=== PATIENT | female | born 1965 | race Caucasian/White ===

== ENCOUNTER 2017-03-05 10:45 | Day surgery (SDC) | payer OTHER ==
--- NOTE | 2017-02-09 07:31 | PCM.HPANE ---
Patient Data Surgeon Admitting Provider: Attending Provider:Flex Garcia MD Primary Care Physician:Kate Magallon Other Provider:Lety Echevarriaingham Anesthesia Reason for Visit Constipation, Right Upper Quadrant Pain Ht/WT & BMI Body Mass Index Allergies Coded Allergies: Sulfa (Sulfonamide Antibiotics) (Verified Allergy, Intermediate, MIGRAINES , 02/08/17) codeine (Verified Allergy, Intermediate, MIGRAINES, 02/08/17) Medications Reported Medications Ergocalciferol (Vitamin D2) (Vitamin D2)2,000 Unit Bgqewj68,000 Unit PO WEEKLY 02/08/17 Venlafaxine 37.5 Mg Vsgnbs38.5 Mg PO BIDWM Ref 0 02/08/17 Omeprazole 20 Mg Capsule.dr20 Mg PO DAILY Ref 0 02/08/17 Nitroglycerin SL 0.4 Mg Tab.subl0.4 Mg SL 02/08/17 Polyethylene Glycol 3350 (Miralax)17 Gm Powd.pack17 Gm PO 02/08/17 Metoprolol Tartrate 25 Mg Raazcm79 Mg PO BID 30 Days Ref 0 02/08/17 Psyllium Husk/Aspartame (Metamucil Sugar-Free Powder)3.4 Gram/5.8 Gram Htsspw051 Gm PO 02/08/17 Lorazepam 0.5 Mg Tablet0.5 Mg PO BID PRN For Insomnia Ref 0 02/08/17 Dicyclomine (Bentyl)10 Mg Lvkmtlo70 Mg PO QID 02/08/17 Aspirin 325 Mg Leezpz812 Mg PO DAILY #1 BOTTLE 02/08/17 Simvastatin 20 Mg Kxenmi15 Mg PO HS Ref 0 02/08/17 Stop/Bang Risk Assessment Category Category 1A: Patient has history of documented sleep apnea, and HAS NOT received any narcotic, sedative or anesthesia administration during this stay. Category 1B: Patient has history of documented sleep apnea, and HAS received any narcotic , sedative or anesthesia administration during this stay Category 2: Patient has SUSPECTED Obstructive Sleep Apnea, and HAS received any narcotic , sedative or anesthesia administration during this stay. Category 3: Patient has SUSPECTED Obstructive Sleep Apnea and HAS NOT received narcotic, sedative or anesthesia administration during this stay. Category 4: Outpatient in Procedural Areas with known sleep apnea or who screen positive for High Risk via the STOP/BANG questionnaire. Plan Impression Patient chart reviewed, patient interviewed and anesthestic plan with risks, benefits, and alternatives discussed, and informed consent obtained. Siva Jaramillo MD Feb 09, 2017 07:31
[~2017-03-05] VITALS: Ht 170.2 cm; Wt 109.0 kg
[~2017-03-05 10:45] MED LIST: ASPI325T32 PO; DICY10CA56 PO; ERGO2000 PO; LORA0.5T PO; METO25TA6 PO; NITR0.4T6 SL; OMEP20CA11 PO; POLY17PO6 PO; SIMV20TA4 PO; VENL37.57 PO; [UNRECOGNIZED DRUG - CODE] PO
[2017-03-05 11:15] VITALS: BP 118/68; PULSE 65; RESP 18; O2SAT 93
[2017-03-05] MEDS ORDERED: RANI150C4 PO ×2 (11:18)
[2017-03-05] MEDS: Lactated Ringer's 1,000 ML IV ONE ×2 (11:34→12:43)
[2017-03-05] MEDS ORDERED: Lactated Ringer's 1,000 ML IV SCH (12:29)
[2017-03-05] MEDS ORDERED: Lactated Ringer's 1,000 ML IV ONE (12:29)
--- NOTE | 2017-03-05 12:29 | PCM.HPANE ---
Patient Data Surgeon Admitting Provider: Attending Provider:Flex Garcia MD Primary Care Physician:Yaw Brenner/Garett Other Provider:Amaury Echevarria Anesthesia Reason for Visit Constipation, Right Upper Quadrant Pain Ht/WT & BMI Height (Feet): 5 Height (Inches): 7 Weight (Kilograms): 109 Body Mass Index 37.00 Allergies Coded Allergies: Sulfa (Sulfonamide Antibiotics) (Verified Allergy, Intermediate, MIGRAINES , 03/05/17) codeine (Verified Allergy, Intermediate, MIGRAINES, 03/05/17) Past Anesthesia History Anesthesia History: Denies:: Abnormal Airway, Anesthesia Reactions, Difficult Intubation, Fam Anesthesia Reaction, Fam Malignant Hypertherm, Malignant Hyperthermia Diabetes History Hx Diabetes?: No MRSA MRSA: No Medications Home Meds Incl Beta Gómez: No Reported Medications Ranitidine 150 Mg Dykeslb813 Mg PO BID Ref 0 03/05/17 Ranitidine 150 Mg Mwlokde270 Mg PO DAILY Ref 0 03/05/17 Venlafaxine 37.5 Mg Nrzurb86.5 Mg PO BIDWM Ref 0 02/08/17 Nitroglycerin SL 0.4 Mg Tab.subl0.4 Mg SL 02/08/17 Polyethylene Glycol 3350 (Miralax)17 Gm Powd.pack17 Gm PO 02/08/17 Metoprolol Tartrate 25 Mg Fqpeiu98 Mg PO BID 30 Days Ref 0 02/08/17 Dicyclomine (Bentyl)10 Mg Deprbpg19 Mg PO QID 02/08/17 Simvastatin 20 Mg Evdazk09 Mg PO HS Ref 0 02/08/17 Discontinued Reported Medications Ergocalciferol (Vitamin D2) (Vitamin D2)2,000 Unit Akhidh08,000 Unit PO WEEKLY 02/08/17 Omeprazole 20 Mg Capsule.dr20 Mg PO DAILY Ref 0 02/08/17 Psyllium Husk/Aspartame (Metamucil Sugar-Free Powder)3.4 Gram/5.8 Gram Qgldke515 Gm PO 02/08/17 Lorazepam 0.5 Mg Tablet0.5 Mg PO BID PRN For Insomnia Ref 0 02/08/17 Aspirin 325 Mg Nxfppn453 Mg PO DAILY #1 BOTTLE 02/08/17 History History of ENT Problems?: No HEENT History: Denies:: Abnormal Airway Difficult Intubation Dysphagia Hearing Problem Denture Type: None Teeth Condition: Within Normal Limits Hx of Heart Problems?: Yes Cardiovascular History: Denies:: AICD Hypertension Pacemaker Valvular Heart Disease Other Cardiac History: HISTORY OF PALPITATIONS, NOW RESOLVED Hx of Respiratory Problem?: No Respiratory History: Denies:: Asthma COPD Chest Surgery Cough Dyspnea Emphysema Hemoptysis Oxygen Administration Pneumonia Pulmonary Embolism Tuberculosis Use of C-PAP Machine Use of Inhalers / NEBS Hx Neurologic Problems?: No Neurological History: Denies:: CVA Hx of GI Problems?: Yes Hx of Problems?: No HX of Peritoneal Dialysis: No Female Hx: Denies:: Currently (POST MENOPAUSE) Hx Musculoskeletal Problems?: Yes Musculoskeletal History: Positive for:: Joint Replacement (KNEE) Denies:: Fibromyalgia Hx of Psycho/Social Problems?: Yes Psycho Social History: Positive for:: Anxiety Denies:: Hx Depression Hx Surgeries?: Yes (GALLBLADDER, HYSTERECTOMY, KNEE, KNEE REPLACEMENT, RT SHOULDER) Hx Any Other Health Problems?: Yes Hx Diabetes: No Hx Alcohol Use: No Stop/Bang Treated for Sleep Apnea?: No Do You Have a CPAP Machine?: No S-Snoring: Do You Snore Loudly: Yes T-Tired: feel tired, fatigued: No O-Obsered: Observed not breath: No P-Blood Pressure: treated: No B- Body Mass Index > 35 kg/m2: Yes A- Age over 50: Yes N- Neck Large Circumference: No G- Gender Male: No HUSSEIN Total Score: 3 HUSSEIN Risk Assessment: Low Risk, <3 Yes HUSSEIN Category 2: Yes Risk Assessment Category Category 1A: Patient has history of documented sleep apnea, and HAS NOT received any narcotic, sedative or anesthesia administration during this stay. Category 1B: Patient has history of documented sleep apnea, and HAS received any narcotic , sedative or anesthesia administration during this stay Category 2: Patient has SUSPECTED Obstructive Sleep Apnea, and HAS received any narcotic , sedative or anesthesia administration during this stay. Category 3: Patient has SUSPECTED Obstructive Sleep Apnea and HAS NOT received narcotic, sedative or anesthesia administration during this stay. Category 4: Outpatient in Procedural Areas with known sleep apnea or who screen positive for High Risk via the STOP/BANG questionnaire. Exam Exam Vital Signs Vital Signs Date Time Temp Pulse Resp B/P Pulse Ox O2 Delivery O2 Flow Rate FiO2 03/05/17 11:15 37 65 18 118/68 93 Room Air General Appearance: Oriented X3 HEENT/AIRWAY: MP 2 Lungs: Normal Air Movement Heart: Regular Rate/Rhythm Plan Impression Patient chart reviewed, patient interviewed and anesthestic plan with risks, benefits, and alternatives discussed, and informed consent obtained. ASA Physical Status: ASA2 Mod Systemic Disease Anesthetic Plan: MAC Bene/Risks/Altern/Consents: Yes HP Complete Prior to Induction: Yes Ricky Brantley MD Mar 05, 2017 12:29
[2017-03-05] MEDS ORDERED: Ondansetron 2 mg/mL 2 mL Inj IVPUSH PRN (12:30)
[2017-03-05] MEDS ORDERED: MetoCLOpramide 5 mg/mL 2 mL Inj IVPUSH PRN (12:30)
[2017-03-05 13:00] VITALS: BP 99/67; PULSE 77; RESP 12; O2SAT 92
[2017-03-05 13:10] VITALS: BP 101/56; PULSE 84; RESP 14; O2SAT 95
[2017-03-05 13:20] VITALS: BP 112/76; PULSE 79; RESP 14; O2SAT 99
--- NOTE | 2017-03-05 14:24 | ENDO ---
[address] [address] ENDOSCOPY PROCEDURE PATIENT: PRINCE NEWMAN : 1965 MR#: [id number] ADMIT: 03/05/2017 JOB ID: [id number] DATE: 03/05/2017 TYPE OF OPERATION: 1. Esophagogastroduodenoscopy with biopsy. 2. Colonoscopy. PREOPERATIVE DIAGNOSIS(ES): Constipation, abdominal pain. POSTOPERATIVE DIAGNOSIS(ES): 1. Mild nonerosive gastritis. 2. Poor prep. ANESTHESIA: Monitored anesthesia care. COMPLICATIONS: None. BLOOD LOSS: Minimal. DESCRIPTION OF PROCEDURE: After risks and benefits were explained to the patient, informed consent was obtained. After anesthesia administered, upper endoscope was then inserted into the mouth intubating through the esophagus, stomach, second portion of duodenum. Mucosa carefully examined. After the procedure was done, the scope was withdrawn and the procedure terminated. Colonoscope was then inserted from the rectum to the cecum. Mucosa carefully examined. Prep of the patient was poor. After procedure was done, the scope was withdrawn and procedure terminated. FINDINGS: Upon inspection of the esophagus, the esophagus was normal without masses, ulcers or lesions. Z-line located 40 cm from incisors. Upon entering the stomach, there was mild nonerosive gastritis that was seen. No masses, ulcers, lesions were recognized. Retroflexion was normal. Duodenal bulb, first and second portion were normal. Biopsies taken at duodenum, antrum, body of stomach and distal esophagus. Upon inspection of the anus, no masses, hemorrhoids, ulcers or fissures that were seen. Throughout the entire examination, there was liquid stool that was seen in various parts of the colon. No obvious masses or polyps were seen. Retroflexion was normal. IMPRESSIONS: 1. Poor prep with liquid stool seen throughout the entire colon, but still be able to visualize various portions of the colon. 2. Mild nonerosive gastritis. RECOMMENDATIONS: 1. Await pathology results. 2. Would recommend repeat colonoscopy with two day prep in one to three years given the poor prep. [facility]
--- NOTE | 2017-03-09 11:00 | PATH ---
SURGICAL PATHOLOGY Attending Physician:Flex Garcia MD CASE STATUS: Signed Out PATIENT NAME: PRINCE NEWMAN PID: [id number] : 1965 DATE COLLECTED:03/05/2017 21:33 SPECIMEN: 1: Duodenum, Biopsy 2: Stomach, Antrum, Biopsy 3: Gastric, Biopsy 4: Esophagus, Biopsy CLINICAL HISTORY: CONSTIPATION/ABD.PAIN 1). DUODENUM BIOPSY 2). ANTRUM BIOPSY 3). GASTRIC BODY BIOPSY 4). DISTAL ESOPHAGUS BIOPSY FINAL DIAGNOSIS: 1. Duodenum, Biopsy: Duodenal mucosa with no diagnostic abnormality. Negative for active inflammation, features of sprue, dysplasia and malignancy. 2. Stomach, Antrum, Biopsy: Antral mucosa with reactive gastropathy and focal features suggestive of acute erosive gastritis. Additional levels were examined. Negative for Helicobacter organisms. Negative for intestinal metaplasia. Negative for dysplasia and malignancy. 3. Stomach, Body, Biopsy: Body-type mucosa with no diagnostic abnormality. Negative for Helicobacter organisms. Negative for intestinal metaplasia. Negative for dysplasia and malignancy. 4. Distal Esophagus, Biopsy: Squamous epithelium with no diagnostic abnormality. Intraepithelial eosinophils are not increased. Negative for dysplasia and malignancy. ICD10: R10.9 GROSS DESCRIPTION: Received are four formalin-filled containers, each labeled with the patient' s name. 1. Received in formalin, labeled with the patient' s name and "duodenum biopsy", are two fragments of julien, soft tissue ranging in size from 0.1 x 0.1 x 0.1 cm to 0.2 x 0.1 x 0.1 cm. All fragments are totally submitted in cassette 1A. 2. Received in formalin, labeled with the patient' s name and "antrum biopsy", are two fragments of julien, soft tissue ranging in size from 0.2 x 0.1 x 0.1 cm to 0.2 x 0.2 x 0.2 cm. All fragments are totally submitted in cassette 2A. 3. Received in formalin, labeled with the patient' s name and "gastric body biopsy", are two fragments of julien, soft tissue ranging in size from 0.1 x 0.1 x 0.1 cm to 0.2 x 0.2 x 0.1 cm. All fragments are totally submitted in cassette 3A. 4. Received in formalin, labeled with the patient' s name and "distal esophagus biopsy", is one fragment of julien, soft tissue measuring 0.2 x 0.1 x 0.1 cm. The fragment is totally submitted in cassette 4A. (RL:[id number]) ICD-9 CODES: CPT CODES: 1: 91012 2: 67158 3: 47735 4: 05363 Electronically Signed Out Maribell Rooney MD [facility] Pathology [facility] [address], [place] [address] Technical component performed at [facility], [address], [place], [address]
== END 2017-03-05 23:59 | disposition home or self-care (01) ==
LOC: END 10:45
PROVIDERS: ATTEND Internal Medicine Gastroenterology
DX: K29.70 Gastritis, unspecified, without bleeding (principal); R10.11 Right upper quadrant pain; K59.00 Constipation, unspecified; R79.89 Other specified abnormal findings of blood chemistry; F41.9 Anxiety disorder, unspecified; K21.9 Gastro-esophageal reflux disease without esophagitis; M25.519 Pain in unspecified shoulder; M25.569 Pain in unspecified knee; F17.210 Nicotine dependence, cigarettes, uncomplicated; E78.5 Hyperlipidemia, unspecified; D32.9 Benign neoplasm of meninges, unspecified; Z79.82 Long term (current) use of aspirin; Z90.710 Acquired absence of both cervix and uterus; Z79.891 Long term (current) use of opiate analgesic; Z96.659 Presence of unspecified artificial knee joint
CPT/HCPCS: 43239; 45378; J7120